=== PATIENT | female | born 1980 | race Caucasian/White ===

== ENCOUNTER 2021-05-23 17:35 | Emergency (ER) | payer OTHER ==
[~2021-05-23] VITALS: Ht 157.5 cm; Wt 83.5 kg
[2021-05-23] MEDS ORDERED: PREDNISONE 20 M20 MG PO (18:58)
[2021-05-23] MEDS ORDERED: TESSALON PERLE100 MG PO (18:58)
[2021-05-23] MEDS ORDERED: PROMETHAZI6.25 MG/5 PO (18:58)
[2021-05-23] MEDS ORDERED: ZPAK PO (18:58)
[2021-05-23 19:12] VITALS: BP 112/73
== END 2021-05-23 19:12 | disposition home or self-care (01) ==
LOC: M.ERS 17:35
DX: U07.1 COVID-19 (principal); J12.82 Pneumonia due to coronavirus disease 2019